=== PATIENT | female | born 1945 | race Caucasian/White ===

== ENCOUNTER 2016-12-27 14:24 | Emergency (ER) | payer MEDICARE, OTHER ==
--- NOTE | 2017-01-09 15:53 | ER ---
ADMIT: 12/27/2016 RM/LOC: ER [facility] MR#: [id number] [address] [address] [address] [place], [place] [id number] Emergency Room Report SEX: F AGE: 71 : 1945 DATE: 12/27/2016 A 71-year-old female, who was driving today, when she had an episode where she forgot where she was driving to, so she went to her daughter's house to get help. She had no other focal findings. No other complaints. Her confusion is cleared by the time of her arrival in the Emergency Department, lasted approximately 10 minutes. There were no other associated symptoms with it. The daughter relayed history and imply with it, her mother drinks at least one bottle of wine and she has been under a great deal of stress and indeed has been having problems with forgetfulness over the past several months. See T- sheet for history and physical. CT scan shows no acute findings. CBC was normal. Chemistries were normal. TSH was within normal limits. Diagnosed with intermittent confusion and encouraged to follow up with her primary care doctor this week. At some point, neuropsychiatric testing may be warranted. There is some concern this may be early onset of dementia. DIAGNOSIS: Intermittent confusion. Trino Blood MD/ shweta JOB #: [id number] CC: Yefri Nunez MD, Attending Physician Calin Schreiber MD, Family Physician
== END 2016-12-27 16:00 | disposition home or self-care (01) ==
LOC: ER 14:24
DX: R41.0 Disorientation, unspecified (principal); I10 Essential (primary) hypertension; F32.9 Major depressive disorder, single episode, unspecified; F41.9 Anxiety disorder, unspecified; Z90.89 Acquired absence of other organs; Z79.899 Other long term (current) drug therapy

== ENCOUNTER → 2016-12-29 | Outpatient (CLI) | payer MEDICARE, OTHER | END | disposition home or self-care (01) | LOC: RAD.S 15:19 | DX: Z12.31 Encounter for screening mammogram for malignant neoplasm of breast (principal) ==